=== PATIENT | male | born 1975 | race Caucasian/White ===

== ENCOUNTER 2017-02-11 17:43 | Inpatient (IN) | payer MEDICARE, MEDICAID ==
[~2017-02-11] VITALS: Ht 182.9 cm; Wt 113.3 kg
[~2017-02-11 17:43] MED LIST: LISI-660 PO; LITH300C3 PO; RISP1 PO
[2017-02-11 18:09] LABS: BASOPHILS % (AUTO) 0.4 % (0.0-2.0); EOSINOPHILS % (AUTO) 1.2 % (1.0-6.0); HEMATOCRIT 47.9 % (41-53); HEMOGLOBIN 16.7 g/dL (13.5-17.5); LYMPHOCYTES % (AUTO) 21.2 % (22.0-44.0); MEAN CORPUSCULAR HEMOGLOBIN 31.2 pg (26.0-34.0); MEAN CORPUSCULAR HGB CONC 34.9 G/dL (31.0-37.0); MEAN CORPUSCULAR VOLUME 89 fL (80-100); MONOCYTES # (AUTO) 0.4 K/uL (0.1-1.0); NEUTROPHILS % (AUTO) 73.2 % (40.0-70.0); PLATELET COUNT (AUTO) 273 K/uL (150-450); RED BLOOD CELL COUNT(AUTO) 5.36 MIL/uL (4.50-5.90); RED CELL DISTRIBUTION WIDTH 13.5 % (11.5-14.5)
[2017-02-11 18:21] LABS: ANION GAP 13 mmol/L (8-16); CALCIUM, TOTAL 9.3 mg/dL (8.8-10.5); CARBON DIOXIDE 24 mmol/L (22-29); CHLORIDE 102 mmol/L (98-107); CREATININE 1.09 mg/dL (0.60-1.30); GLOMERULAR FILTR. RATE CALC > 60 mL/min (>60); GLUCOSE,RANDOM 181 mg/dL (70-110); POTASSIUM 3.6 mmol/L (3.5-5.1); SODIUM SERUM 139 mmol/L (136-145); UREA NITROGEN, BLOOD 17 mg/dL (7-18)
[2017-02-11 18:27] LABS: ALANINE AMINOTRANSFERASE 226 U/L (12-78); ALBUMIN 4.5 g/dL (3.4-5.0); ALKALINE PHOSPHATASE 78 U/L (46-116); ASPARTATE AMINOTRANSFERASE 132 U/L (15-37); BILIRUBIN,TOTAL 0.5 mg/dL (0.1-1.0); TOTAL PROTEIN, SERUM 8.4 g/dL (6.4-8.2)
[2017-02-11 18:55] LABS: LITHIUM < 0.20 mmol/L (0.60-1.20)
[2017-02-11] MEDS ORDERED: LORazepam 2 MG/ML VIAL IM ONE (19:30)
[2017-02-11] MEDS ORDERED: DiphenhydrAMINE HCL 50 MG/ML VIAL IM ONE (19:30)
[2017-02-11] MEDS ORDERED: HALOPERIDOL LACTATE 5 MG/ML VIAL IM ONE (19:30)
[2017-02-11] MEDS ORDERED: LORazepam 2 MG TABLET PO PRN (20:15)
[2017-02-11] MEDS ORDERED: ZOLPIDEM TARTRATE 10 MG TABLET PO PRN (20:15)
[2017-02-11] MEDS ORDERED: HALOPERIDOL 5 MG TABLET PO PRN (20:15)
[2017-02-11 20:21] LABS: AMPHET/METH SCREEN,URINE NEGATIVE (NEGATIVE); BARBITURATE SCREEN, URINE NEGATIVE (NEGATIVE); BENZODIAZEPINES SCREEN,URINE NEGATIVE (NEGATIVE); CANNABINOID SCREEN,URINE NEGATIVE (NEGATIVE); COCAINE SCREEN,URINE NEGATIVE (NEGATIVE); METHADONE SCREEN, URINE NEGATIVE (NEGATIVE); OPIATE SCREEN,URINE NEGATIVE (NEGATIVE); PHENCYCLIDINE SCREEN,URINE NEGATIVE (NEGATIVE)
[2017-02-12 08:22] LABS: CHOL/HDL RATIO 5.6 (4.2-7.3)
[2017-02-12 10:03] VITALS: BP 128/77
[2017-02-12] MEDS ORDERED: MAGNESIUM HYDROXIDE SUSPENSION 30 ML UDCUP PO PRN (10:30)
[2017-02-12] MEDS ORDERED: GuaiFENesin/D-METHORPHAN [SUGAR-FREE] 200-20MG/10 ML SYRUP UDCUP PO PRN (10:30)
[2017-02-12] MEDS ORDERED: LOPERAMIDE HCL 2 MG CAPSULE PO PRN (10:30)
[2017-02-12] MEDS ORDERED: TUBERCULIN, PURIFIED PROTEIN DERIVATIVE 5 TU/0.1 ML SYG ID ONE (10:30)
[2017-02-12] MEDS ORDERED: ACETAMINOPHEN 325 MG TABLET PO PRN (10:30)
[2017-02-12] MEDS ORDERED: MAG HYDROX/AL HYDROX/SIMETH ES 30 ML SUSPENSION UDCUP PO PRN (10:30)
[2017-02-12] MEDS ORDERED: PROMETHAZINE HCL 25 MG TABLET PO PRN (10:30)
[2017-02-12] MEDS ORDERED: HydrOXYzine PAMOATE 50 MG CAPSULE PO PRN (10:30)
[2017-02-12 10:49] VITALS: BP 120/77
[2017-02-12 16:44] VITALS: BP 141/85
[2017-02-12 20:22] VITALS: BP 120/71
[2017-02-12] MEDS: THIAMINE HCL 100 MG TABLET PO SCH (20:39)
[2017-02-12] MEDS ORDERED: TraZODone HCL 100 MG TABLET PO SCH (21:00)
[2017-02-12] MEDS ORDERED: TraZODone HCL 50 MG TABLET PO SCH (21:00)
[2017-02-12] MEDS ORDERED: OLANZapine 10 MG TABLET PO SCH (21:00)
[2017-02-12] MEDS ORDERED: OLANZapine 5 MG RAPDIS TABLET PO SCH (21:00)
[2017-02-12] MEDS ORDERED: INFLUENZA VIRUS VACCINE QVS 2017-18 (3YR+)/PF 60 MCG/0.5 ML SYRINGE IM ONE (23:45)
[2017-02-13] MEDS ORDERED: PNEUMOCOCCAL VACCINE POLYVALENT 0.5 ML VIAL [PPSV23] IM ONE (00:15)
[2017-02-13 01:47] VITALS: BP 124/72
[2017-02-13] MEDS ORDERED: IBUPROFEN 400 MG TABLET PO PRN (08:00)
[2017-02-13 08:08] VITALS: BP 115/76
[2017-02-13] MEDS: MULTIVITAMINS WITH MINERALS, THERAPEUTIC TABLET PO SCH (08:28)
[2017-02-13] MEDS: FOLIC ACID 1 MG TABLET PO SCH (08:28)
[2017-02-13] MEDS: THIAMINE HCL 100 MG TABLET PO SCH ×2 (08:28→16:31)
[2017-02-13] MEDS ORDERED: TRAZ150 PO (09:05)
[2017-02-13] MEDS ORDERED: OLAN10TA3 PO (09:05)
[2017-02-13] MEDS: OLANZapine 10 MG TABLET PO SCH (12:49)
[2017-02-13 16:44] VITALS: BP 119/79
[2017-02-13] MEDS: SIMVASTATIN 10 MG TABLET PO SCH (20:29)
[2017-02-13] MEDS: TraZODone HCL 150 MG TABLET PO SCH (20:29)
[2017-02-14 00:10] VITALS: BP 111/78
[2017-02-14] MEDS: OLANZapine 10 MG TABLET PO SCH (08:23)
[2017-02-14] MEDS: MULTIVITAMINS WITH MINERALS, THERAPEUTIC TABLET PO SCH (08:23)
[2017-02-14] MEDS: THIAMINE HCL 100 MG TABLET PO SCH ×2 (08:23→16:36)
[2017-02-14] MEDS: FOLIC ACID 1 MG TABLET PO SCH (08:23)
[2017-02-14 08:36] VITALS: BP 123/71
[2017-02-14 10:00] VITALS: BP 118/74
[2017-02-14 16:27] VITALS: BP 124/88
[2017-02-14] MEDS: TraZODone HCL 150 MG TABLET PO SCH (20:38)
[2017-02-14] MEDS: SIMVASTATIN 10 MG TABLET PO SCH (20:38)
[2017-02-15 01:31] VITALS: BP 133/82
[2017-02-15 08:22] VITALS: BP 139/65
[2017-02-15] MEDS: OLANZapine 10 MG TABLET PO SCH (08:53)
[2017-02-15] MEDS: FOLIC ACID 1 MG TABLET PO SCH (08:53)
[2017-02-15] MEDS: MULTIVITAMINS WITH MINERALS, THERAPEUTIC TABLET PO SCH (08:53)
[2017-02-15] MEDS: THIAMINE HCL 100 MG TABLET PO SCH ×2 (08:53→16:47)
[2017-02-15 16:13] VITALS: BP 125/89
[2017-02-15] MEDS: TraZODone HCL 150 MG TABLET PO SCH (20:40)
[2017-02-15] MEDS: SIMVASTATIN 10 MG TABLET PO SCH (20:40)
[2017-02-16 02:43] VITALS: BP 126/79
[2017-02-16] MEDS: MULTIVITAMINS WITH MINERALS, THERAPEUTIC TABLET PO SCH (08:13)
[2017-02-16] MEDS: THIAMINE HCL 100 MG TABLET PO SCH ×2 (08:13→16:33)
[2017-02-16] MEDS: OLANZapine 10 MG TABLET PO SCH (08:13)
[2017-02-16] MEDS: FOLIC ACID 1 MG TABLET PO SCH (08:13)
[2017-02-16 08:48] VITALS: BP 138/86
[2017-02-16 16:16] VITALS: BP 130/74
[2017-02-16] MEDS: SIMVASTATIN 10 MG TABLET PO SCH (20:43)
[2017-02-16] MEDS: TraZODone HCL 150 MG TABLET PO SCH (20:43)
[2017-02-17 01:37] VITALS: BP 107/64
[2017-02-17 08:28] VITALS: BP 121/83
[2017-02-17] MEDS: THIAMINE HCL 100 MG TABLET PO SCH ×2 (08:34→16:25)
[2017-02-17] MEDS: MULTIVITAMINS WITH MINERALS, THERAPEUTIC TABLET PO SCH (08:34)
[2017-02-17] MEDS: FOLIC ACID 1 MG TABLET PO SCH (08:34)
[2017-02-17] MEDS: OLANZapine 10 MG TABLET PO SCH (08:34)
[2017-02-17 16:10] VITALS: BP 127/77
[2017-02-17] MEDS: TraZODone HCL 150 MG TABLET PO SCH (20:31)
[2017-02-17] MEDS: SIMVASTATIN 10 MG TABLET PO SCH (20:31)
[2017-02-18 06:32] VITALS: BP 127/89
[2017-02-18 08:09] VITALS: BP 123/82
[2017-02-18] MEDS: MULTIVITAMINS WITH MINERALS, THERAPEUTIC TABLET PO SCH (08:55)
[2017-02-18] MEDS: FOLIC ACID 1 MG TABLET PO SCH (08:55)
[2017-02-18] MEDS: THIAMINE HCL 100 MG TABLET PO SCH ×2 (08:55→16:08)
[2017-02-18] MEDS: OLANZapine 10 MG TABLET PO SCH (08:55)
[2017-02-18 16:11] VITALS: BP 123/75
[2017-02-18] MEDS: TraZODone HCL 150 MG TABLET PO SCH (20:17)
[2017-02-18] MEDS: SIMVASTATIN 10 MG TABLET PO SCH (20:17)
[2017-02-19 06:12] VITALS: BP 119/65
[2017-02-19 08:27] VITALS: BP 121/75
[2017-02-19] MEDS: THIAMINE HCL 100 MG TABLET PO SCH ×2 (08:58→16:39)
[2017-02-19] MEDS: MULTIVITAMINS WITH MINERALS, THERAPEUTIC TABLET PO SCH (08:58)
[2017-02-19] MEDS: FOLIC ACID 1 MG TABLET PO SCH (08:58)
[2017-02-19] MEDS: OLANZapine 10 MG TABLET PO SCH (08:58)
[2017-02-19 16:06] VITALS: BP 121/79
[2017-02-19] MEDS ORDERED: OLANZapine 10 MG TABLET PO SCH (21:00)
[2017-02-19] MEDS: SIMVASTATIN 10 MG TABLET PO SCH (21:05)
[2017-02-19] MEDS: TraZODone HCL 150 MG TABLET PO SCH (21:05)
[2017-02-20 06:40] VITALS: BP 121/73
[2017-02-20 08:13] VITALS: BP 112/69
[2017-02-20] MEDS: MULTIVITAMINS WITH MINERALS, THERAPEUTIC TABLET PO SCH (08:53)
[2017-02-20] MEDS: FOLIC ACID 1 MG TABLET PO SCH (08:53)
[2017-02-20] MEDS: THIAMINE HCL 100 MG TABLET PO SCH (08:53)
[2017-02-20] MEDS ORDERED: SIMV10TA2 PO (10:23)
== END 2017-02-20 12:35 | disposition home or self-care (01) | DRG 885 ==
LOC: EMS 17:44 → AHU 02-12 07:36 → B2X 02-12 19:05
PROVIDERS: ADMIT Psychiatry & Neurology Child & Adolescent Psychiatry
DX: F25.0 Schizoaffective disorder, bipolar type (principal); R45.850 Homicidal ideations; F23 Brief psychotic disorder; E78.5 Hyperlipidemia, unspecified; I10 Essential (primary) hypertension; Z81.8 Family history of other mental and behavioral disorders; Z91.5 Personal history of self-harm; R74.0 Nonspecific elevation of levels of transaminase and lactic acid dehydrogenase [LDH]; Z28.21 Immunization not carried out because of patient refusal
CPT/HCPCS: 80074; 83036; 84443; 87081; 93005; 96372; 99285; G0480; J1200; J1630; J2060